=== PATIENT | male | born 1980 | race Two or more races ===

== ENCOUNTER 2022-01-20 16:25 | Inpatient (IN) | payer OTHER ==
[~2022-01-20] VITALS: Ht 162.6 cm; Wt 61.2 kg
[2022-01-20] MEDS ORDERED: IV NS 0.9% 1,000 ML BAG IV ONE (16:30)
[2022-01-20 17:14] LABS: CALCIUM, SERUM 9.3 mg/dL (8.5-10.1); CARBON DIOXIDE 28 mmol/L (21-32); CHLORIDE 99 mmol/L (98-107); CREATININE 0.7 mg/dL (0.6-1.3); GLUCOSE 119 mg/dL (74-106); POTASSIUM 3.3 mmol/L (3.5-5.1); SODIUM SERUM 138 mmol/L (136-145); UREA NITROGEN, BLOOD 7 mg/dL (7-18)
[2022-01-20 17:20] LABS: ALANINE AMINOTRANSFERASE 311 U/L (12-78); ALBUMIN 3.8 g/dL (3.4-5.0); ALKALINE PHOSPHATASE 111 U/L (46-116); ASPARTATE AMINOTRANSFERASE 227 U/L (15-37); BILIRUBIN,DIRECT 0.1 mg/dL (0.0-0.2); BILIRUBIN,TOTAL 0.4 mg/dL (0.2-1.0); TOTAL PROTEIN, SERUM 7.7 g/dL (6.4-8.2)
[2022-01-20 17:55] LABS: BASOPHILS % (AUTO) 0.1 % (0.0-2.0); EOSINOPHILS % (AUTO) 0.1 % (0.0-6.0); LYMPHOCYTES # (AUTO) 1.8 K/uL (0.8-4.8); LYMPHOCYTES % (AUTO) 79.8 % (20.0-44.0); MEAN CORPUSCULAR HGB CONC 35 g/dl (31.0-36.0); MEAN CORPUSCULAR VOLUME 89 fL (80-96); MONOCYTES # (AUTO) 0.2 K/uL (0.1-1.30); MONOCYTES % (AUTO) 7.5 % (2.0-12.0); NEUTROPHILS # (AUTO) 0.3 K/uL (1.8-8.9); NEUTROPHILS % (AUTO) 12.5 % (43.0-81.0); WHITE BLOOD COUNT (AUTO) 2.3 K/uL (4.3-11.0)
[2022-01-20 18:03] LABS: HEMATOCRIT 7 % (39-51); HEMOGLOBIN 2.5 g/dL (13.5-17.5); PLATELET COUNT (AUTO) 6 K/uL (150-450)
[2022-01-20 18:38] LABS: LYMPHOCYTES % (MANUAL) 80 % (16-48); MONOCYTES % (MANUAL) 10 % (0-11.0); NEUTROPHILS % (MANUAL) 10 (42-76)
[2022-01-20] MEDS ORDERED: ONDANSETRON HCL/PF 4 MG/2 ML VIAL IVP PRN (20:00)
[2022-01-20] MEDS ORDERED: Z GUARD REMEDY 4 OZ OINT TP PRN (20:00)
[2022-01-20] MEDS ORDERED: TEMAZEPAM 15 MG CAPSULE PO PRN (20:00)
[2022-01-20] MEDS ORDERED: MORPHINE SULFATE INJ 2 MG/ML DISP.SYRIN IV PRN (20:00)
[2022-01-20] MEDS ORDERED: LORAZEPAM INJ 2 MG/ML VIAL IV PRN (20:00)
[2022-01-20] MEDS ORDERED: HYDROCODONE/APAP 5/325MG TABLET PO PRN (20:00)
[2022-01-20] MEDS ORDERED: CEFEPIME 2 GM in IV D5W 100 ML IV SCH (21:00)
[2022-01-20] MEDS ORDERED: PANTOPRAZOLE 40 MG TABLET.DR PO SCH (23:15)
[2022-01-21] VITALS (18 sets, daily range): BP systolic 114–141; BP diastolic 62–79
[2022-01-21] MEDS: IV NS 0.9% 1,000 ML IV PRN ×2 (03:06→16:53)
[2022-01-21] MEDS ORDERED: CEFEPIME 1 GM VIAL ONE (04:57)
[2022-01-21] MEDS ORDERED: CEFEPIME 2 GM in IV D5W 100 ML IV SCH (05:00)
[2022-01-21 06:29] LABS: BASOPHILS % (AUTO) 0.1 % (0.0-2.0); EOSINOPHILS % (AUTO) 0.2 % (0.0-6.0); LYMPHOCYTES # (AUTO) 1.1 K/uL (0.8-4.8); LYMPHOCYTES % (AUTO) 80.6 % (20.0-44.0); MEAN CORPUSCULAR HGB CONC 35 g/dl (31.0-36.0); MEAN CORPUSCULAR VOLUME 88 fL (80-96); MONOCYTES # (AUTO) 0.1 K/uL (0.1-1.30); MONOCYTES % (AUTO) 7.6 % (2.0-12.0); NEUTROPHILS # (AUTO) 0.2 K/uL (1.8-8.9); NEUTROPHILS % (AUTO) 11.5 % (43.0-81.0)
[2022-01-21 06:44] LABS: RED BLOOD CELL COUNT(AUTO) 1.65 MIL/uL (4.5-6.0)
[2022-01-21 06:48] LABS: HEMATOCRIT 15 % (39-51); HEMOGLOBIN 5.1 g/dL (13.5-17.5); PLATELET COUNT (AUTO) 31 K/uL (150-450); WHITE BLOOD COUNT (AUTO) 1.4 K/uL (4.3-11.0)
[2022-01-21 07:23] LABS: CALCIUM, SERUM 8.5 mg/dL (8.5-10.1); CREATININE 0.5 mg/dL (0.6-1.3); MAGNESIUM 1.8 mg/dL (1.8-2.4); PHOSPHORUS 3.9 mg/dL (2.5-4.9); POTASSIUM 3.4 mmol/L (3.5-5.1)
[2022-01-21] MEDS ORDERED: HYDR-3972 PO (07:26)
[2022-01-21] MEDS ORDERED: PANT40TA49 PO (07:26)
[2022-01-21] MEDS: LACTULOSE 10 G/15 ML UDC (PYXIS) PO SCH ×2 (08:29→17:51)
[2022-01-21] MEDS: THIAMINE HCL 100 MG TABLET PO SCH (08:29)
[2022-01-21] MEDS: PANTOPRAZOLE 40 MG TABLET.DR PO SCH (08:29)
[2022-01-21 10:15] LABS: LYMPHOCYTES % (MANUAL) 76 % (16-48); MONOCYTES % (MANUAL) 8 % (0-11.0); NEUTROPHILS % (MANUAL) 16 (42-76)
[2022-01-21] MEDS ORDERED: POTASSIUM CHLORIDE 20 MEQ TAB.PRT.SR PO SCH (11:00)
[2022-01-21 12:57] LABS: D-DIMER 1.55 mg/L(FEU (0.17-0.50)
[2022-01-21 14:17] LABS: THYROID STIMULATING HORMONE 0.928 uIU/mL (0.358-3.74)
[2022-01-21] MEDS: CEFEPIME 2 GM in IV D5W 100 ML IV SCH ×2 (15:30→22:49)
[2022-01-21] MEDS: ACYCLOVIR 200 MG CAPSULE PO SCH (17:50)
[2022-01-21] MEDS: ALLOPURINOL 100 MG TABLET PO SCH (17:51)
[2022-01-21 18:17] LABS: BASOPHILS % (AUTO) 0.3 % (0.0-2.0); EOSINOPHILS % (AUTO) 0.2 % (0.0-6.0); HEMATOCRIT 25 % (39-51); HEMOGLOBIN 8.5 g/dL (13.5-17.5); LYMPHOCYTES # (AUTO) 0.9 K/uL (0.8-4.8); LYMPHOCYTES % (AUTO) 74.8 % (20.0-44.0); MEAN CORPUSCULAR HGB CONC 35 g/dl (31.0-36.0); MEAN CORPUSCULAR VOLUME 86 fL (80-96); MONOCYTES # (AUTO) 0.1 K/uL (0.1-1.30); MONOCYTES % (AUTO) 8.4 % (2.0-12.0); NEUTROPHILS # (AUTO) 0.2 K/uL (1.8-8.9); NEUTROPHILS % (AUTO) 16.3 % (43.0-81.0); RED BLOOD CELL COUNT(AUTO) 2.88 MIL/uL (4.5-6.0)
[2022-01-21 20:21] LABS: PLATELET COUNT (AUTO) 27 K/uL (150-450); WHITE BLOOD COUNT (AUTO) 1.2 K/uL (4.3-11.0)
[2022-01-21] MEDS: TBO-FILGRASTIM 300 MCG/0.5 ML SYRINGE SQ SCH (20:43)
[2022-01-21 21:21] LABS: LYMPHOCYTES % (MANUAL) 53 % (16-48); MONOCYTES % (MANUAL) 1 % (0-11.0); NEUTROPHILS % (MANUAL) 44 (42-76); REACTIVE LYMPHOCYTES 2 % (0-0)
[2022-01-22] VITALS (7 sets, daily range): BP systolic 108–129; BP diastolic 58–76
[2022-01-22] MEDS: CEFEPIME 2 GM in IV D5W 100 ML IV SCH ×3 (05:31→20:08)
[2022-01-22 06:47] LABS: BASOPHILS % (AUTO) 0.1 % (0.0-2.0); EOSINOPHILS % (AUTO) 0.1 % (0.0-6.0); HEMATOCRIT 23 % (39-51); HEMOGLOBIN 8.2 g/dL (13.5-17.5); LYMPHOCYTES % (AUTO) 75.4 % (20.0-44.0); MEAN CORPUSCULAR HGB CONC 35 g/dl (31.0-36.0); MEAN CORPUSCULAR VOLUME 85 fL (80-96); MONOCYTES # (AUTO) 0.1 K/uL (0.1-1.30); MONOCYTES % (AUTO) 8.7 % (2.0-12.0); NEUTROPHILS # (AUTO) 0.2 K/uL (1.8-8.9); NEUTROPHILS % (AUTO) 15.7 % (43.0-81.0); RED BLOOD CELL COUNT(AUTO) 2.73 MIL/uL (4.5-6.0)
[2022-01-22 06:54] LABS: PLATELET COUNT (AUTO) 21 K/uL (150-450); WHITE BLOOD COUNT (AUTO) 1.3 K/uL (4.3-11.0)
[2022-01-22 07:25] LABS: ALBUMIN 3.2 g/dL (3.4-5.0); BILIRUBIN,DIRECT 0.3 mg/dL (0.0-0.2); BILIRUBIN,TOTAL 1.2 mg/dL (0.2-1.0); CALCIUM, SERUM 9.1 mg/dL (8.5-10.1); CREATININE 0.6 mg/dL (0.6-1.3); POTASSIUM 3.6 mmol/L (3.5-5.1); TOTAL PROTEIN, SERUM 6.8 g/dL (6.4-8.2)
[2022-01-22 08:06] LABS: IMMUNOGLOBULIN A, SERUM 478 mg/dL (90-386); IMMUNOGLOBULIN G, SERUM 892 mg/dL (603-1613); IMMUNOGLOBULIN M, SERUM 131 mg/dL (20-172)
[2022-01-22] MEDS: PANTOPRAZOLE 40 MG TABLET.DR PO SCH (08:26)
[2022-01-22 08:36] LABS: BAND % (MANUAL) 2 % (0.0-5.0); LYMPHOCYTES % (MANUAL) 73 % (16-48); MONOCYTES % (MANUAL) 7 % (0-11.0); NEUTROPHILS % (MANUAL) 18 (42-76)
[2022-01-22] MEDS: LACTULOSE 10 G/15 ML UDC (PYXIS) PO SCH ×2 (08:37→16:49)
[2022-01-22] MEDS: IV NS 0.9% 1,000 ML IV PRN ×2 (08:37→23:52)
[2022-01-22] MEDS: ACYCLOVIR 200 MG CAPSULE PO SCH ×2 (08:38→16:49)
[2022-01-22] MEDS: THIAMINE HCL 100 MG TABLET PO SCH (08:38)
[2022-01-22] MEDS: ALLOPURINOL 100 MG TABLET PO SCH ×3 (08:38→16:49)
[2022-01-22 11:06] LABS: *ANA ANTI-CENTROMERE B AB <0.2 AI (0.0-0.9); *ANA ANTI-DNA(DS) AB, QN <1 IU/mL (0-9); *ANA ANTI-JO-1 <0.2 AI (0.0-0.9); *ANA ANTICHROMATIN ANTIBODY <0.2 AI (0.0-0.9); *ANA RNP ANTIBODIES <0.2 AI (0.0-0.9); *ANA SJOGREN'S ANTI-SS-A <0.2 AI (0.0-0.9); *ANA SJOGREN'S ANTI-SS-B <0.2 AI (0.0-0.9); *ANAANTI-SCLERODERMA-70 AB <0.2 AI (0.0-0.9); *ANASMITH AB <0.2 AI (0.0-0.9)
[2022-01-22] MEDS ORDERED: LIDOCAINE 1% INJ 50 ML MDV IJ ONE (14:00)
[2022-01-22] MEDS ORDERED: ACETAMINOPHEN 325 MG TABLET PO ONE ×2 (14:00→18:00)
[2022-01-22] MEDS ORDERED: diphenhydrAMINE HCL 50 MG/ML VIAL IV ONE ×2 (14:00→17:37)
[2022-01-22] MEDS ORDERED: MORPHINE SULFATE INJ 2 MG/ML DISP.SYRIN IV ONE (19:00)
[2022-01-22] MEDS ORDERED: MORPHINE SULFATE INJ 4 MG/ML DISP.SYRIN IV PRN (19:30)
[2022-01-22 19:53] LABS: BASOPHILS % (AUTO) 0.1 % (0.0-2.0); EOSINOPHILS % (AUTO) 0.1 % (0.0-6.0); HEMATOCRIT 25 % (39-51); HEMOGLOBIN 8.6 g/dL (13.5-17.5); LYMPHOCYTES % (AUTO) 70.7 % (20.0-44.0); MEAN CORPUSCULAR HGB CONC 35 g/dl (31.0-36.0); MEAN CORPUSCULAR VOLUME 86 fL (80-96); MONOCYTES # (AUTO) 0.1 K/uL (0.1-1.30); MONOCYTES % (AUTO) 8.3 % (2.0-12.0); NEUTROPHILS # (AUTO) 0.3 K/uL (1.8-8.9); NEUTROPHILS % (AUTO) 20.8 % (43.0-81.0); RED BLOOD CELL COUNT(AUTO) 2.85 MIL/uL (4.5-6.0)
[2022-01-22] MEDS: TBO-FILGRASTIM 300 MCG/0.5 ML SYRINGE SQ SCH (20:05)
[2022-01-22 20:15] LABS: PLATELET COUNT (AUTO) 20 K/uL (150-450); WHITE BLOOD COUNT (AUTO) 1.4 K/uL (4.3-11.0)
[2022-01-22 21:05] LABS: LYMPHOCYTES % (MANUAL) 64 % (16-48); MONOCYTES % (MANUAL) 10 % (0-11.0); NEUTROPHILS % (MANUAL) 26 (42-76)
[2022-01-23] VITALS: BP 129/69
[2022-01-23 04:00] VITALS: BP 116/75
[2022-01-23] MEDS: CEFEPIME 2 GM in IV D5W 100 ML IV SCH ×3 (05:06→20:24)
[2022-01-23 06:46] LABS: CALCIUM, SERUM 8.8 mg/dL (8.5-10.1); CREATININE 0.6 mg/dL (0.6-1.3); POTASSIUM 3.4 mmol/L (3.5-5.1)
[2022-01-23 06:54] LABS: BASOPHILS % (AUTO) 0.1 % (0.0-2.0); EOSINOPHILS % (AUTO) 0.3 % (0.0-6.0); HEMATOCRIT 22 % (39-51); HEMOGLOBIN 7.9 g/dL (13.5-17.5); MEAN CORPUSCULAR HGB CONC 35 g/dl (31.0-36.0); MEAN CORPUSCULAR VOLUME 86 fL (80-96); MONOCYTES # (AUTO) 0.2 K/uL (0.1-1.30); MONOCYTES % (AUTO) 10.1 % (2.0-12.0); NEUTROPHILS # (AUTO) 0.4 K/uL (1.8-8.9); NEUTROPHILS % (AUTO) 27.5 % (43.0-81.0); RED BLOOD CELL COUNT(AUTO) 2.62 MIL/uL (4.5-6.0)
[2022-01-23 06:57] LABS: PLATELET COUNT (AUTO) 24 K/uL (150-450); WHITE BLOOD COUNT (AUTO) 1.6 K/uL (4.3-11.0)
[2022-01-23 08:00] VITALS: BP 131/80
[2022-01-23] MEDS: THIAMINE HCL 100 MG TABLET PO SCH (09:05)
[2022-01-23] MEDS: ALLOPURINOL 100 MG TABLET PO SCH ×3 (09:05→16:30)
[2022-01-23] MEDS: LACTULOSE 10 G/15 ML UDC (PYXIS) PO SCH ×2 (09:05→16:30)
[2022-01-23] MEDS: PANTOPRAZOLE 40 MG TABLET.DR PO SCH (09:05)
[2022-01-23] MEDS: ACYCLOVIR 200 MG CAPSULE PO SCH ×2 (09:05→16:29)
[2022-01-23 09:07] LABS: BAND % (MANUAL) 9 % (0.0-5.0); EOSINOPHILS % (MANUAL) 2 % (0-4); LYMPHOCYTES % (MANUAL) 65 % (16-48); MONOCYTES % (MANUAL) 12 % (0-11.0); NEUTROPHILS % (MANUAL) 12 (42-76)
[2022-01-23] MEDS ORDERED: POTASSIUM CHLORIDE 20 MEQ TAB.PRT.SR PO SCH ×2 (09:30→11:00)
[2022-01-23 11:07] LABS: *SPE A/G RATIO 1.1 (0.7-1.7); *SPE ALPHA-1-GLOBULIN 0.4 g/dL (0.0-0.4); *SPE ALPHA-2-GLOBULIN 0.6 g/dL (0.4-1.0); *SPE BETA GLOBULIN 1.4 g/dL (0.7-1.3); *SPE M-SPIKE Not Observed g/dL (Not Observed)
[2022-01-23 12:00] VITALS: BP 107/64
[2022-01-23 16:00] VITALS: BP 109/63
[2022-01-23 20:00] VITALS: BP 105/59
[2022-01-23] MEDS: TBO-FILGRASTIM 300 MCG/0.5 ML SYRINGE SQ SCH (20:14)
[2022-01-24] VITALS (12 sets, daily range): BP systolic 95–136; BP diastolic 61–82
[2022-01-24] MEDS: IV NS 0.9% 1,000 ML IV PRN ×2 (00:53→13:18)
[2022-01-24] MEDS: CEFEPIME 2 GM in IV D5W 100 ML IV SCH ×3 (04:28→20:33)
[2022-01-24 06:17] LABS: BASOPHILS % (AUTO) 0.2 % (0.0-2.0); EOSINOPHILS % (AUTO) 0.1 % (0.0-6.0); HEMATOCRIT 23 % (39-51); HEMOGLOBIN 7.9 g/dL (13.5-17.5); LYMPHOCYTES # (AUTO) 0.8 K/uL (0.8-4.8); LYMPHOCYTES % (AUTO) 53.5 % (20.0-44.0); MEAN CORPUSCULAR HGB CONC 35 g/dl (31.0-36.0); MEAN CORPUSCULAR VOLUME 87 fL (80-96); MONOCYTES # (AUTO) 0.2 K/uL (0.1-1.30); MONOCYTES % (AUTO) 12.7 % (2.0-12.0); NEUTROPHILS # (AUTO) 0.5 K/uL (1.8-8.9); NEUTROPHILS % (AUTO) 33.5 % (43.0-81.0); RED BLOOD CELL COUNT(AUTO) 2.63 MIL/uL (4.5-6.0)
[2022-01-24 07:13] LABS: CALCIUM, SERUM 8.9 mg/dL (8.5-10.1); CREATININE 0.6 mg/dL (0.6-1.3); MAGNESIUM 1.8 mg/dL (1.8-2.4); PHOSPHORUS 4.4 mg/dL (2.5-4.9); POTASSIUM 3.5 mmol/L (3.5-5.1)
[2022-01-24] MEDS: PANTOPRAZOLE 40 MG TABLET.DR PO SCH (08:36)
[2022-01-24] MEDS: LACTULOSE 10 G/15 ML UDC (PYXIS) PO SCH ×2 (08:38→17:04)
[2022-01-24] MEDS: THIAMINE HCL 100 MG TABLET PO SCH (08:38)
[2022-01-24] MEDS: ALLOPURINOL 100 MG TABLET PO SCH ×3 (08:38→17:04)
[2022-01-24] MEDS: ACYCLOVIR 200 MG CAPSULE PO SCH ×2 (08:38→17:04)
[2022-01-24 08:39] LABS: PLATELET COUNT (AUTO) 13 K/uL (150-450); WHITE BLOOD COUNT (AUTO) 1.5 K/uL (4.3-11.0)
[2022-01-24] MEDS ORDERED: ACETAMINOPHEN 325 MG TABLET PO ONE (15:00)
[2022-01-24 15:41] LABS: D-DIMER 3.19 mg/L(FEU (0.17-0.50)
[2022-01-24 16:39] LABS: LYMPHOCYTES % (MANUAL) 55 % (16-48); MONOCYTES % (MANUAL) 10 % (0-11.0)
[2022-01-24 16:40] LABS: NEUTROPHILS % (MANUAL) 35 (42-76)
[2022-01-24] MEDS: TBO-FILGRASTIM 300 MCG/0.5 ML SYRINGE SQ SCH (20:33)
[2022-01-24] MEDS ORDERED: ACETAMINOPHEN 325 MG TABLET ONE (21:45)
[2022-01-25] VITALS: BP 118/71
[2022-01-25 04:00] VITALS: BP 107/67
[2022-01-25] MEDS: CEFEPIME 2 GM in IV D5W 100 ML IV SCH ×3 (04:26→21:00)
[2022-01-25 07:03] LABS: BASOPHILS % (AUTO) 0.1 % (0.0-2.0); EOSINOPHILS % (AUTO) 0.2 % (0.0-6.0); HEMATOCRIT 23 % (39-51); HEMOGLOBIN 7.9 g/dL (13.5-17.5); LYMPHOCYTES # (AUTO) 0.8 K/uL (0.8-4.8); LYMPHOCYTES % (AUTO) 51.2 % (20.0-44.0); MEAN CORPUSCULAR HGB CONC 34 g/dl (31.0-36.0); MEAN CORPUSCULAR VOLUME 87 fL (80-96); MONOCYTES # (AUTO) 0.2 K/uL (0.1-1.30); MONOCYTES % (AUTO) 12.3 % (2.0-12.0); NEUTROPHILS # (AUTO) 0.5 K/uL (1.8-8.9); NEUTROPHILS % (AUTO) 36.2 % (43.0-81.0); RED BLOOD CELL COUNT(AUTO) 2.64 MIL/uL (4.5-6.0)
[2022-01-25 07:07] LABS: CALCIUM, SERUM 8.3 mg/dL (8.5-10.1); CREATININE 0.5 mg/dL (0.6-1.3); MAGNESIUM 1.7 mg/dL (1.8-2.4); PHOSPHORUS 3.9 mg/dL (2.5-4.9); POTASSIUM 3.5 mmol/L (3.5-5.1)
[2022-01-25 08:00] VITALS: BP 113/60
[2022-01-25] MEDS: LACTULOSE 10 G/15 ML UDC (PYXIS) PO SCH ×2 (09:25→17:12)
[2022-01-25] MEDS: ACYCLOVIR 200 MG CAPSULE PO SCH ×2 (09:25→17:12)
[2022-01-25] MEDS: PANTOPRAZOLE 40 MG TABLET.DR PO SCH (09:25)
[2022-01-25] MEDS: ALLOPURINOL 100 MG TABLET PO SCH ×3 (09:26→17:12)
[2022-01-25] MEDS: THIAMINE HCL 100 MG TABLET PO SCH (09:26)
[2022-01-25] MEDS ORDERED: MAGNESIUM OXIDE 400 MG TABLET PO ONE (10:00)
[2022-01-25 10:49] LABS: WHITE BLOOD COUNT (AUTO) 1.5 K/uL (4.3-11.0)
[2022-01-25 10:51] LABS: PLATELET COUNT (AUTO) 23 K/uL (150-450)
[2022-01-25 12:00] VITALS: BP 103/62
[2022-01-25] MEDS: IV NS 0.9% 1,000 ML IV PRN (14:00)
[2022-01-25 16:00] VITALS: BP 122/52
[2022-01-25 20:00] VITALS: BP 110/66
[2022-01-25] MEDS: TBO-FILGRASTIM 300 MCG/0.5 ML SYRINGE SQ SCH (21:00)
[2022-01-25] MEDS: METRONIDAZOLE 500 MG TABLET PO SCH (22:13)
[2022-01-25] MEDS ORDERED: DOXYCYCLINE 100 MG VIAL ONE (22:53)
[2022-01-25] MEDS: DOXYCYCLINE 100 MG in IV D5W 100 ML IV SCH (23:00)
[2022-01-26] VITALS (8 sets, daily range): BP systolic 105–131; BP diastolic 49–77
[2022-01-26 02:43] LABS: BILIRUBIN,URINE NEGATIVE (NEGATIVE); COLOR,URINE YELLOW (YELLOW); LEUKOCYTE ESTERASE ,URINE NEGATIVE (NEGATIVE); NITRITE, URINE NEGATIVE (NEGATIVE); PH,URINE 6.5 (5.0-8.0); PROTEIN,URINE NEGATIVE (NEGATIVE); UGLUCOSE NEGATIVE (NEGATIVE); UROBILINOGEN,URINE 0.2 EU/dL (0.2)
[2022-01-26] MEDS: METRONIDAZOLE 500 MG TABLET PO SCH ×3 (05:28→21:15)
[2022-01-26] MEDS: CEFEPIME 2 GM in IV D5W 100 ML IV SCH ×3 (05:28→21:16)
[2022-01-26 06:27] LABS: BASOPHILS % (AUTO) 0.1 % (0.0-2.0); EOSINOPHILS % (AUTO) 0.3 % (0.0-6.0); HEMATOCRIT 23 % (39-51); HEMOGLOBIN 7.9 g/dL (13.5-17.5); LYMPHOCYTES # (AUTO) 1.2 K/uL (0.8-4.8); LYMPHOCYTES % (AUTO) 54.1 % (20.0-44.0); MEAN CORPUSCULAR HGB CONC 35 g/dl (31.0-36.0); MEAN CORPUSCULAR VOLUME 87 fL (80-96); MONOCYTES # (AUTO) 0.3 K/uL (0.1-1.30); MONOCYTES % (AUTO) 14.4 % (2.0-12.0); NEUTROPHILS # (AUTO) 0.7 K/uL (1.8-8.9); NEUTROPHILS % (AUTO) 31.1 % (43.0-81.0); WHITE BLOOD COUNT (AUTO) 2.3 K/uL (4.3-11.0)
[2022-01-26 06:48] LABS: CREATININE 0.5 mg/dL (0.6-1.3); MAGNESIUM 1.8 mg/dL (1.8-2.4); PHOSPHORUS 4.1 mg/dL (2.5-4.9); POTASSIUM 3.6 mmol/L (3.5-5.1)
[2022-01-26] MEDS: IV NS 0.9% 1,000 ML IV PRN (07:19)
[2022-01-26 07:46] LABS: PLATELET COUNT (AUTO) 14 K/uL (150-450)
[2022-01-26] MEDS: PANTOPRAZOLE 40 MG TABLET.DR PO SCH (08:18)
[2022-01-26] MEDS: DOXYCYCLINE 100 MG in IV D5W 100 ML IV SCH ×2 (08:18→23:27)
[2022-01-26] MEDS: THIAMINE HCL 100 MG TABLET PO SCH (08:19)
[2022-01-26] MEDS: ALLOPURINOL 100 MG TABLET PO SCH ×2 (08:19→12:34)
[2022-01-26] MEDS: ACYCLOVIR 200 MG CAPSULE PO SCH (08:19)
[2022-01-26] MEDS: LACTULOSE 10 G/15 ML UDC (PYXIS) PO SCH ×2 (08:19→16:53)
[2022-01-26] MEDS ORDERED: diphenhydrAMINE HCL 50 MG/ML VIAL IV ONE ×3 (16:00→20:00)
[2022-01-26] MEDS ORDERED: ACETAMINOPHEN 325 MG TABLET PO ONE ×3 (16:00→20:00)
[2022-01-26 20:13] LABS: LYMPHOCYTES % (MANUAL) 53 % (16-48); MONOCYTES % (MANUAL) 6 % (0-11.0); NEUTROPHILS % (MANUAL) 41 (42-76)
[2022-01-26] MEDS: TBO-FILGRASTIM 300 MCG/0.5 ML SYRINGE SQ SCH (21:15)
[2022-01-27] VITALS: BP 99/64
[2022-01-27] MEDS: IV NS 0.9% 1,000 ML IV PRN (02:20)
[2022-01-27 04:00] VITALS: BP 95/51
[2022-01-27] MEDS: METRONIDAZOLE 500 MG TABLET PO SCH ×2 (04:29→12:02)
[2022-01-27] MEDS: CEFEPIME 2 GM in IV D5W 100 ML IV SCH ×2 (04:29→12:02)
[2022-01-27 06:49] LABS: BASOPHILS % (AUTO) 0.2 % (0.0-2.0); EOSINOPHILS % (AUTO) 0.2 % (0.0-6.0); HEMATOCRIT 21 % (39-51); HEMOGLOBIN 7.4 g/dL (13.5-17.5); LYMPHOCYTES # (AUTO) 1.1 K/uL (0.8-4.8); LYMPHOCYTES % (AUTO) 46.5 % (20.0-44.0); MEAN CORPUSCULAR HGB CONC 35 g/dl (31.0-36.0); MEAN CORPUSCULAR VOLUME 86 fL (80-96); MONOCYTES # (AUTO) 0.3 K/uL (0.1-1.30); MONOCYTES % (AUTO) 12.8 % (2.0-12.0); NEUTROPHILS % (AUTO) 40.3 % (43.0-81.0); RED BLOOD CELL COUNT(AUTO) 2.49 MIL/uL (4.5-6.0); WHITE BLOOD COUNT (AUTO) 2.4 K/uL (4.3-11.0)
[2022-01-27 06:54] LABS: CALCIUM, SERUM 8.8 mg/dL (8.5-10.1); CREATININE 0.6 mg/dL (0.6-1.3); MAGNESIUM 1.8 mg/dL (1.8-2.4); PHOSPHORUS 4.3 mg/dL (2.5-4.9); POTASSIUM 3.9 mmol/L (3.5-5.1)
[2022-01-27 06:58] LABS: PLATELET COUNT (AUTO) 41 K/uL (150-450)
[2022-01-27] MEDS: PANTOPRAZOLE 40 MG TABLET.DR PO SCH (07:39)
[2022-01-27 08:00] VITALS: BP 92/57
[2022-01-27] MEDS: LACTULOSE 10 G/15 ML UDC (PYXIS) PO SCH (08:44)
[2022-01-27] MEDS: THIAMINE HCL 100 MG TABLET PO SCH (08:44)
[2022-01-27] MEDS: DOXYCYCLINE 100 MG in IV D5W 100 ML IV SCH (08:44)
[2022-01-27 08:49] LABS: LYMPHOCYTES % (MANUAL) 50 % (16-48); MONOCYTES % (MANUAL) 8 % (0-11.0); NEUTROPHILS % (MANUAL) 42 (42-76)
[2022-01-27 12:00] VITALS: BP 97/57
[2022-01-27] MEDS ORDERED: LACT10SO58 PO (13:27)
[2022-01-27] MEDS ORDERED: Thiamine HCL PO (13:27)
[2022-01-27] MEDS ORDERED: THIA100T88 PO (13:28)
== END 2022-01-27 13:55 | disposition home or self-care (01) | DRG 280 ==
LOC: ER 16:30 → TELE1 23:11
PROVIDERS: ADMIT Nurse Practitioner Acute Care; ATTEND Student in an Organized Health Care Education/Training Program
PROC: 30233N1 Transfusion of Nonautologous Red Blood Cells into Peripheral Vein, Percutaneous Approach (ICD-10-PCS; principal; 2022-01-20)
PROC: 6A551Z2 Pheresis of Platelets, Multiple (ICD-10-PCS; 2022-01-20)
PROC: 079T3ZX Drainage of Bone Marrow, Percutaneous Approach, Diagnostic (ICD-10-PCS; 2022-01-22)
DX: K70.9 Alcoholic liver disease, unspecified (principal); D61.818 Other pancytopenia; E72.20 Disorder of urea cycle metabolism, unspecified; D69.6 Thrombocytopenia, unspecified; E87.6 Hypokalemia; R74.01 Elevation of levels of liver transaminase levels; Z59.00 Homelessness unspecified; Z20.822 Contact with and (suspected) exposure to COVID-19; F10.10 Alcohol abuse, uncomplicated; Y90.8 Blood alcohol level of 240 mg/100 ml or more; D64.9 Anemia, unspecified; F15.10 Other stimulant abuse, uncomplicated; Z87.891 Personal history of nicotine dependence; N28.1 Cyst of kidney, acquired; F41.9 Anxiety disorder, unspecified; D70.9 Neutropenia, unspecified; R50.81 Fever presenting with conditions classified elsewhere; R19.7 Diarrhea, unspecified
CPT/HCPCS: 36415; 70450-TC; 71045-TC; 76700-TC; 76856-TC; 80048-TC; 80076-TC; 82140-TC; 82607-TC; 82728-TC; 82784; 83540-TC; 83735-TC; 84100-TC; 84155; 84165; 84443-TC; 84484-TC; 85025-TC; 85396; 85610-TC; 85730-TC; 86225; 86235; 86334; 86431-TC; 86706; 86803; 86850-TC; 87040-TC; 87081-TC; 87086-TC; 87340; 87806; A6403; C9803; G0378; G0480; J0692; J1200; J1442; J2270; J3490; J7030; J7040; J7050; J7060; P9016; P9034; P9035

== ENCOUNTER 2022-03-19 15:14 | Inpatient (IN) | payer OTHER ==
[~2022-03-19] VITALS: Ht 162.6 cm; Wt 56.7 kg
[~2022-03-19 15:14] MED LIST: HYDR-3972 PO; LACT10SO58 PO; THIA100T88 PO
--- NOTE | 2022-03-19 15:24 | NUR ---
TO ER BED 11. BIB RA 889 IN A SITTING POSITION,C/O WEAKNESS X 1 WEEK,ADMIT TO DRINKING ALCOHOL AND USING CRYSTAL METH. VITALS ARE WITHIN NORMAL LIMITS, NO RESP DISTRESS NOTED. AWAITING MD TUCKER.
[2022-03-19] MEDS ORDERED: IV NS 0.9% 1,000 ML BAG IV ONE ×2 (15:30→17:00)
--- NOTE | 2022-03-19 15:41 | NUR ---
IV ESTABLIHSED R AC 20G. LABS DRAWN AND COLLECTED AT BEDSIDE.
[2022-03-19 16:22] LABS: CALCIUM, SERUM 9.2 mg/dL (8.5-10.1); CARBON DIOXIDE 19 mmol/L (21-32); CHLORIDE 100 mmol/L (98-107); CREATININE 0.8 mg/dL (0.6-1.3); GLUCOSE 99 mg/dL (74-106); POTASSIUM 3.5 mmol/L (3.5-5.1); SODIUM SERUM 139 mmol/L (136-145); UREA NITROGEN, BLOOD 11 mg/dL (7-18)
[2022-03-19 16:36] LABS: ALANINE AMINOTRANSFERASE 145 U/L (12-78); ALBUMIN 3.8 g/dL (3.4-5.0); ALCOHOL, BLOOD 97 mg/dL (0-0); ALKALINE PHOSPHATASE 122 U/L (46-116); ASPARTATE AMINOTRANSFERASE 148 U/L (15-37); BILIRUBIN,DIRECT 0.1 mg/dL (0.0-0.2); BILIRUBIN,TOTAL 0.4 mg/dL (0.2-1.0); TOTAL PROTEIN, SERUM 7.3 g/dL (6.4-8.2)
[2022-03-19 16:41] LABS: ACETAMINOPHEN < 2 ug/ml (10-30)
--- NOTE | 2022-03-19 16:45 | NUR ---
COVID TEST COLLECTED AND SENT
--- NOTE | 2022-03-19 16:46 | NUR ---
URINE COLLECTED AND SENT
[2022-03-19] MEDS ORDERED: PANTOPRAZOLE 40 MG VIAL ONE (16:49)
[2022-03-19] MEDS ORDERED: OCTREOTIDE 100 MCG/ML VIAL ONE (16:49)
[2022-03-19] MEDS ORDERED: FOLI0.8C PO (16:53)
[2022-03-19] MEDS ORDERED: THIA100T88 PO (16:53)
[2022-03-19] MEDS ORDERED: VITA1TAB56 PO (16:53)
[2022-03-19] MEDS ORDERED: PANTOPRAZOLE 40 MG VIAL IV ONE (17:00)
[2022-03-19] MEDS ORDERED: CEFEPIME 1 GM in IV D5W 50 ML IV ONE (17:00)
[2022-03-19] MEDS ORDERED: OCTREOTIDE 50 MCG/ML AMPUL IV ONE (17:00)
[2022-03-19] MEDS ORDERED: VANCOMYCIN 1 GM in IV D5W 250 ML IV ONE (17:00)
--- NOTE | 2022-03-19 17:25 | NUR ---
SPOKE TO PALOMA FOSTER FROM [facility] AND GAVE VERBAL AUTHORIZATION
[2022-03-19 17:27] LABS: BILIRUBIN,URINE NEGATIVE (NEGATIVE); COLOR,URINE YELLOW (YELLOW); LEUKOCYTE ESTERASE ,URINE NEGATIVE (NEGATIVE); NITRITE, URINE NEGATIVE (NEGATIVE); PROTEIN,URINE NEGATIVE (NEGATIVE); UGLUCOSE NEGATIVE (NEGATIVE); UROBILINOGEN,URINE 0.2 EU/dL (0.2)
[2022-03-19 19:20] LABS: BACTERIA,URINE None seen /HPF (None Seen); RBC,URINE 0-2 /HPF (0-2); SQUAMOUS EPITHELIAL CELL,UR 0-2 /HPF (None Seen); WBC,URINE 0-2 /HPF (0-3)
--- NOTE | 2022-03-19 21:00 | NUR ---
SECOND UNIT OF BLOOD TRANSFUSION COMENCED AT 83MLS/HR.
--- NOTE | 2022-03-19 22:43 | NUR ---
BLEACH BOILER PACKER AT PT'S BEDSIDE
[2022-03-19] MEDS ORDERED: MAG HYDROX/AL HYDROX/SIMETH 30 ML UDC PO PRN (23:00)
[2022-03-19] MEDS ORDERED: Z GUARD REMEDY 4 OZ OINT TP PRN (23:00)
[2022-03-19] MEDS ORDERED: TEMAZEPAM 15 MG CAPSULE PO PRN (23:00)
[2022-03-19] MEDS ORDERED: LORAZEPAM INJ 2 MG/ML VIAL IV PRN (23:00)
[2022-03-19] MEDS ORDERED: ONDANSETRON HCL/PF 4 MG/2 ML VIAL IVP PRN (23:00)
[2022-03-19] MEDS ORDERED: MORPHINE SULFATE INJ 2 MG/ML DISP.SYRIN IV PRN (23:00)
[2022-03-19 23:56] LABS: HEMOGLOBIN 3.6 g/dL (13.5-17.5)
[2022-03-20] VITALS (15 sets, daily range): BP systolic 105–122; BP diastolic 59–96
[2022-03-20] MEDS ORDERED: MORPHINE SULFATE INJ 2 MG/ML DISP.SYRIN ONE (00:44)
--- NOTE | 2022-03-20 01:00 | NUR ---
THRID UNIT OF BLOOD TRANSFUSION RUNNING
--- NOTE | 2022-03-20 02:46 | NUR ---
called twice to give report rn will call back.
--- NOTE | 2022-03-20 02:53 | NUR ---
REPORT GIVEN TO NINOSKA KELLEY
--- NOTE | 2022-03-20 02:54 | NUR ---
TRANSFERRING PT TO 113 VIA ACLS
--- NOTE | 2022-03-20 03:10 | NUR ---
MIGRATORY WORKER NOTE RECEIVED 41 Y/O M PATIENT FROM ER VIA [facility], ON RA TOLERATING WELL, PT ABLE TO MAKE NEEDS KNOWN, WITH IV ACCESS ON LAC RUNNING 3RD BAG OF PRBC AT 150 ML/HR AND IV ACCESS ON R WRIST INTACT, PATENT AND FLUSHES WELL. INITIAL ASSESSMENT DONE, PATIENT DECLINED BODY CHECK ON LOWER EXTREMITIES. SKIN INTACT ON THE UPPER BODY PART. NO S/SX OF RESPIRATORY DISTRESS. ORIENTED PT TO THE UNIT, V/S TAKEN AND RECORDED AT 98.5, 75, 97%, RR 18, 122/81. CALL LIGHT WITHIN REACH, BED IN LOWEST AND LOCKED POSITION. WILL CONT TO MONITOR.
[2022-03-20] MEDS: IV NS 0.9% 1,000 ML IV PRN (03:44)
[2022-03-20 04:31] LABS: BASOPHILS % (AUTO) 0.2 % (0.0-2.0); EOSINOPHILS % (AUTO) 0.1 % (0.0-6.0); LYMPHOCYTES # (AUTO) 1.6 K/uL (0.8-4.8); LYMPHOCYTES % (AUTO) 70.8 % (20.0-44.0); MEAN CORPUSCULAR HGB CONC 35 g/dl (31.0-36.0); MEAN CORPUSCULAR VOLUME 91 fL (80-96); MONOCYTES # (AUTO) 0.1 K/uL (0.1-1.30); MONOCYTES % (AUTO) 5.9 % (2.0-12.0); NEUTROPHILS # (AUTO) 0.5 K/uL (1.8-8.9); WHITE BLOOD COUNT (AUTO) 2.2 K/uL (4.3-11.0)
[2022-03-20 04:55] LABS: RED BLOOD CELL COUNT(AUTO) 1.83 MIL/uL (4.5-6.0)
[2022-03-20 04:58] LABS: CALCIUM, SERUM 8.5 mg/dL (8.5-10.1); CREATININE 0.7 mg/dL (0.6-1.3); HEMATOCRIT 17 % (39-51); HEMOGLOBIN 5.9 g/dL (13.5-17.5); MAGNESIUM 2.4 mg/dL (1.8-2.4); PHOSPHORUS 3.7 mg/dL (2.5-4.9); PLATELET COUNT (AUTO) 7 K/uL (150-450); POTASSIUM 4.1 mmol/L (3.5-5.1)
[2022-03-20 05:06] LABS: BAND % (MANUAL) 3 % (0.0-5.0); LYMPHOCYTES % (MANUAL) 70 % (16-48); MONOCYTES % (MANUAL) 6 % (0-11.0)
[2022-03-20 05:07] LABS: NEUTROPHILS % (MANUAL) 21 (42-76)
--- NOTE | 2022-03-20 05:12 | NUR ---
RN NOTE RELAYED PT CRITICAL LAB VALUE TO HYDRO STATION OPERATOR DOC LAYO. HGB 5.9, HCT 17, AND PLATELET 7. V/S TAKEN AT 118/74, 75, RR 18, 98%, T 98.4 AWAITING FOR RESPONSE,
--- NOTE | 2022-03-20 05:13 | NUR ---
RN NOTE DOC LAYO ORDERED TO TRANSFUSE 1 UNIT PRBC AND 1 UNIT PLATELET CONCENTRATE, CALLED LABORATORY, AWAITING FOR BLOOD AVAILABILITY, WILL CONT TO MONITOR PATIENT.
[2022-03-20] MEDS ORDERED: PANTOPRAZOLE 40 MG TABLET.DR PO SCH (07:30)
--- NOTE | 2022-03-20 07:32 | NUR ---
SHEET PILE HAMMER OPERATOR CLOSING NOTE PT ON BED SLEEPING BUT EASILY AROUSABLE TO TOUCH AND VOICE, ON RA TOLERATING WELL, PT ABLE TO MAKE NEEDS KNOWN, WITH IV ACCESS ON LAC RUNNING NS AT 75 ML/HR AND IV ACCESS ON R WRIST INTACT, PATENT AND FLUSHES WELL. NO S/SX OF RESPIRATORY DISTRESS. ALL DUE MEDS GIVEN, CALL LIGHT WITHIN REACH, BED IN LOWEST AND LOCKED POSITION. WILL ENDORSE TO AM SHIFT NURSE.
[2022-03-20] MEDS ORDERED: CEFEPIME 1 GM in IV D5W 50 ML IV SCH (09:00)
[2022-03-20] MEDS: CEFEPIME 2 GM in IV D5W 100 ML IV SCH ×2 (09:17→21:44)
[2022-03-20] MEDS: THIAMINE HCL 100 MG TABLET PO SCH (09:18)
[2022-03-20] MEDS: PANTOPRAZOLE 40 MG VIAL IV SCH ×2 (09:18→21:44)
[2022-03-20 11:07] LABS: HEMOGLOBIN 5.4 g/dL (13.5-17.5)
--- NOTE | 2022-03-20 12:18 | NUR ---
SS consult requested for homelessness. SW will follow up at a later time.
[2022-03-20] MEDS: ACETAMINOPHEN 325 MG TABLET PO PRN (13:20)
--- NOTE | 2022-03-20 13:26 | NUR ---
RN NOTE BLOOD TRANSFUSION INITIATED. BP, RESP, HR WNL. PT NOTED WITH LOW GRADE FEVER OF 99.[address] VASQUES NOTIFIED, OKAY TO START TRANSFUSION. COOLING MEASURES PROVIDED, TYLENOL GIVEN. WILL CONTINUE TO MONITOR.
[2022-03-20 13:51] LABS: THYROID STIMULATING HORMONE 0.989 uIU/mL (0.358-3.74)
--- NOTE | 2022-03-20 15:55 | NUR ---
RN NOTE BLOOD TRANSFUSION COMPLETED. NO ADVERSE REACTIONS NOTED. PT RESTING IN BED COMFORTABLY. VITAL SIGNS WNL. TEMPERATURE NOW 99.4. WILL CONTINUE TO MONITOR. NOTIFIED DR. VASQUES THAT PLATELET CONCENTRATE IS NOT READY YET AND WILL REPEAT H/H AT 1700.
--- NOTE | 2022-03-20 17:58 | NUR ---
RN NOTE SPOKE WITH AICHA VASQUES REGARDING POST H/H RESULTS FOLLOWING BLOOD TRANSFUSION BEING 7.0/20. PER DR. VASQUES CBC IN AM. NO FURTHER ORDERS.
--- NOTE | 2022-03-20 18:51 | NUR ---
RN NOTE NO SIGNIFICANT CHANGES IN PT CONDITION DURING SHIFT. PT VITAL SIGNS WNL THROUGHOUT SHIFT. RUNNING MID 99'S HIGH 99'S TEMP. COOLING MEASURES WERE PROVIDED AND TYLENOL WAS GIVEN. AWARE. BLOOD TRANSFUSION WAS INITIATED WITH NO ADVERSE REACTIONS NOTED. PLATELET CONCENTRATE TO BE GIVEN DURING EVENING SHIFT WILL ENDORSE TO EVENING RN. IV ACCESS NOTED ON LEFT AC AND RIGHT WRIST INFUSING NS AT 75 CC/HR. ALL SAFETY MEASURES WERE IMPLEMENTED. WILL ENDORSE TO EVENING RN FOR JAKE.
--- NOTE | 2022-03-20 19:30 | NUR ---
HOME THEATER INSTALLER OPENING NOTE RECEIVED PT IN BED, A/O X 4. ABLE TO MAKE NEEDS KNOWN. IV ACCESS NOTED ON RIGHT AC INFUSING NS AT 75 CC/HR AND LEFT WRIST, SL. PT IS S/P BT. KEPT HOB ELEVATED. ALL SAFETY MEASURES IN PLACE: BED LOCKED IN LOW POSITION. CALL LIGHT WITHIN REACH. WILL CONTINUE TO MONITOR PT..
--- NOTE | 2022-03-20 20:56 | NUR ---
RN NOTE PLATELET TRANSFUSION INITIATED. INITIAL VS WNL. TEMP: 99.6 RR: 20 BP: 107/62 02 SAT: 97% WILL CONTINUE TO MONITOR PT CLOSELY.
--- NOTE | 2022-03-20 21:11 | NUR ---
RN NOTE VS AFTER 15 MINUTES: TEMP: 98.9 HR: 63 RR: 18 BP: 109/81 PT IS ALERT AND AWAKE. NO SIGNS OF ADVERSE REACTION NOTED AT THIS TIME. WILL CONTINUE TO MONITOR.
--- NOTE | 2022-03-20 21:56 | NUR ---
RN NOTE ONE HOUR INTO PLATELET TRANSFUSION, PT IS CALM AND AWAKE. NO SIGNS OF DISTRESS. VSS.
[2022-03-20] MEDS ORDERED: TBO-FILGRASTIM 300 MCG/0.5 ML SYRINGE SQ SCH (22:00)
--- NOTE | 2022-03-20 23:23 | NUR ---
RN NOTE UNABLE TO GIVE MEDICATION TBO-FILGRASTIM (GRANIX). NURSING SLATE SPLITTER JESSICA UNABLE TO PULL UP DRUG DUE TO ITS UNAVAILABILITY.
--- NOTE | 2022-03-20 23:45 | NUR ---
RN NOTE PLATELET TRANSFUSION ENDED. PT IN BED, SLEEPING. NO SIGNS OF ACUTE DISTRESS NOTED. ALL VS ARE WNL. WILL CONTINUE TO MONITOR.
[2022-03-21] VITALS: BP 127/70
[2022-03-21] MEDS: IV NS 0.9% 1,000 ML IV PRN ×2 (02:21→16:05)
[2022-03-21 04:00] VITALS: BP 110/82
--- NOTE | 2022-03-21 06:29 | NUR ---
SOLAR SYSTEMS DESIGNER CLOSING NOTE PT REMAINED STABLE THROUGHOUT THE NIGHT. PT IS NPO SINCE MIDNIGHT, EXCEPT FOR MEDS. SCHEDULED FOR US ABDOMEN TODAY. ALL SAFETY MEASURES IMPLEMENTED. WILL ENDORSE TO AM NURSE FOR JAKE.
[2022-03-21 06:35] LABS: LYMPHOCYTES # (AUTO) 0.8 K/uL (0.8-4.8); MEAN CORPUSCULAR HGB CONC 36 g/dl (31.0-36.0); MONOCYTES # (AUTO) 0.1 K/uL (0.1-1.30); NEUTROPHILS # (AUTO) 0.3 K/uL (1.8-8.9)
--- NOTE | 2022-03-21 07:30 | NUR ---
ASSISTANT OPERATIONS MANAGER OPENING NOTE RECEIVED PT IN BED, A/O X 4. ABLE TO MAKE NEEDS KNOWN. IV ACCESS NOTED ON RIGHT AC INFUSING NS AT 75 CC/HR. KEPT HOB ELEVATED. ALL SAFETY MEASURES IN PLACE: BED LOCKED IN LOW POSITION. CALL LIGHT WITHIN REACH. WILL CONTINUE TO MONITOR.
[2022-03-21 08:00] VITALS: BP 112/62
[2022-03-21 08:24] LABS: CALCIUM, SERUM 7.9 mg/dL (8.5-10.1); CREATININE 0.6 mg/dL (0.6-1.3); POTASSIUM 3.7 mmol/L (3.5-5.1)
[2022-03-21] MEDS: CEFEPIME 2 GM in IV D5W 100 ML IV SCH ×2 (08:37→20:16)
[2022-03-21] MEDS: THIAMINE HCL 100 MG TABLET PO SCH (08:37)
[2022-03-21] MEDS: PANTOPRAZOLE 40 MG VIAL IV SCH (08:37)
[2022-03-21] MEDS: TBO-FILGRASTIM 300 MCG/0.5 ML SYRINGE SQ SCH (08:38)
[2022-03-21 10:21] LABS: MEAN CORPUSCULAR VOLUME 90 fL (80-96)
[2022-03-21 10:26] LABS: HEMOGLOBIN 6.2 g/dL (13.5-17.5); RED BLOOD CELL COUNT(AUTO) 1.91 MIL/uL (4.5-6.0); WHITE BLOOD COUNT (AUTO) 1.2 K/uL (4.3-11.0)
[2022-03-21 10:29] LABS: HEMATOCRIT 17 % (39-51); LYMPHOCYTES % (AUTO) 67.3 % (20.0-44.0); MONOCYTES % (AUTO) 6.7 % (2.0-12.0); NEUTROPHILS % (AUTO) 25.1 % (43.0-81.0); PLATELET COUNT (AUTO) 25 K/uL (150-450)
[2022-03-21 10:30] LABS: BASOPHILS % (AUTO) 0.2 % (0.0-2.0); EOSINOPHILS % (AUTO) 0.7 % (0.0-6.0)
[2022-03-21 10:47] LABS: BAND % (MANUAL) 4 % (0.0-5.0); LYMPHOCYTES % (MANUAL) 68 % (16-48); MONOCYTES % (MANUAL) 5 % (0-11.0); NEUTROPHILS % (MANUAL) 23 (42-76)
[2022-03-21 12:00] VITALS: BP 120/64
[2022-03-21 16:00] VITALS: BP 116/76
[2022-03-21] MEDS: PANTOPRAZOLE 40 MG TABLET.DR PO SCH (16:26)
--- NOTE | 2022-03-21 19:00 | NUR ---
ABD FIDENCIO DONE. DIET CHANGED TO PREVIOUS DIET/SOFT DIET ORDERED.
--- NOTE | 2022-03-21 19:02 | NUR ---
AERONAUTICAL PRODUCTS SALES ENGINEER CLOSING NOTE PT IN BED, A/O X 4. ABLE TO MAKE NEEDS KNOWN. IV ACCESS ON RIGHT AC INFUSING NS AT 75 CC/HR. KEPT HOB ELEVATED. ALL SAFETY MEASURES IN PLACE: BED LOCKED IN LOW POSITION. CALL LIGHT WITHIN REACH. WILL ENDORSE TO NEXT NURSE ON DUTY FOR CONTINUITY OF CARE.
--- NOTE | 2022-03-21 19:30 | NUR ---
RN NOTES RECEIVED CARE OF PATIENT FROM AM NURSE. PATIENT A/O X4, ABLE TO MAKE NEEDS KNOWN. PATIENT ON ROOM AIR, O2 SAT 98%, NO RESPIRATORY DISTRESS NOTED. ON TELE MONITOR READING NSR WITH HR OF 73. NO SIGNIFICANT FINDINGS UPON INITIAL NURSING ASSESSMENTS. PENDING BLOOD TRANFUSION FOR HGB OF 6.2, BLOOD IS NOT READING AT THIS TIME PER BLOOD BLANK. SAFETY MEASURES IN PLACE. WILL CONTINUE TO MONITOR PATIENT.
[2022-03-21 20:00] VITALS: BP 122/75
[2022-03-22] VITALS (12 sets, daily range): BP systolic 114–130; BP diastolic 67–81
[2022-03-22 06:35] LABS: BASOPHILS % (AUTO) 0.1 % (0.0-2.0); EOSINOPHILS % (AUTO) 0.5 % (0.0-6.0); LYMPHOCYTES # (AUTO) 1.1 K/uL (0.8-4.8); LYMPHOCYTES % (AUTO) 57.2 % (20.0-44.0); MEAN CORPUSCULAR HGB CONC 36 g/dl (31.0-36.0); MEAN CORPUSCULAR VOLUME 89 fL (80-96); MONOCYTES # (AUTO) 0.2 K/uL (0.1-1.30); MONOCYTES % (AUTO) 8.9 % (2.0-12.0); NEUTROPHILS # (AUTO) 0.6 K/uL (1.8-8.9); NEUTROPHILS % (AUTO) 33.3 % (43.0-81.0)
[2022-03-22 06:38] LABS: CALCIUM, SERUM 8.5 mg/dL (8.5-10.1); CREATININE 0.5 mg/dL (0.6-1.3); POTASSIUM 3.6 mmol/L (3.5-5.1)
[2022-03-22 07:27] LABS: RED BLOOD CELL COUNT(AUTO) 1.96 MIL/uL (4.5-6.0)
[2022-03-22 07:32] LABS: HEMATOCRIT 18 % (39-51); HEMOGLOBIN 6.2 g/dL (13.5-17.5); PLATELET COUNT (AUTO) 16 K/uL (150-450); WHITE BLOOD COUNT (AUTO) 1.9 K/uL (4.3-11.0)
--- NOTE | 2022-03-22 07:32 | NUR ---
RN NOTES PATIENT IN BED, ASLEEP, RSEPONDS TO NAME AND TOUCH. NOT IN ANY DISTRESS. PER PLATFORM MATERIAL HANDLING SUPERVISOR, PT'S HGB LEVEL IS 6.2 SINCE YESTERDAY, ORDER PLACED FOR TRANSFUSION 03/21/2022 1227. NO AVAILABLE BLOOD FOR THE WHOLE DAY AND WHOLE PLATFORM MATERIAL HANDLING SUPERVISOR. BLOOD BECAME AVAILABLE ONLY AT 0600 THIS MORNIGN. WILL PROCEED WITH BLOOD TRANSFUSION ORDERED.
[2022-03-22] MEDS: PANTOPRAZOLE 40 MG TABLET.DR PO SCH ×2 (07:45→17:55)
[2022-03-22] MEDS: CEFEPIME 2 GM in IV D5W 100 ML IV SCH (09:26)
[2022-03-22] MEDS: THIAMINE HCL 100 MG TABLET PO SCH (09:26)
--- NOTE | 2022-03-22 09:30 | NUR ---
RN NOTES DUE MEDS GIVEN
[2022-03-22] MEDS: IV NS 0.9% 1,000 ML IV PRN (09:33)
[2022-03-22] MEDS: TBO-FILGRASTIM 300 MCG/0.5 ML SYRINGE SQ SCH (09:42)
--- NOTE | 2022-03-22 10:30 | NUR ---
RN NOTES 1 UNIT PRBC COMPLETED TRANSFUSION. NO ADVERSE REACTION NOTED
[2022-03-22 10:59] LABS: BAND % (MANUAL) 6 % (0.0-5.0); EOSINOPHILS % (MANUAL) 1 % (0-4); LYMPHOCYTES % (MANUAL) 58 % (16-48); MONOCYTES % (MANUAL) 6 % (0-11.0); NEUTROPHILS % (MANUAL) 29 (42-76)
[2022-03-22] MEDS ORDERED: diphenhydrAMINE HCL 50 MG/ML VIAL IV ONE ×2 (18:30→23:00)
[2022-03-22] MEDS ORDERED: ACETAMINOPHEN 325 MG TABLET PO ONE (18:30)
--- NOTE | 2022-03-22 19:20 | NUR ---
HOSE STRIPPER OPENING NOTES: RECEIVED PATIENT IN BED, AWAKE, A/O X4. NO S/S OF DISTRESS NOTED. NO COMPLAIN OF PAIN. CALL LIGHT WITHIN REACH. BED IN LOWEST AND LOCKED POSITION. URINAL AT THE BEDSIDE. ON REVERSED ISOLATION, MAINTAINED AT ALL TIMES. DR LUO CAME AND SEEN THE PATIENT AT 1950. ON TELE MONITOR WITH SINUS JETHRO 59.
--- NOTE | 2022-03-22 19:26 | NUR ---
BARREL RIFLER OPERATOR CLOSING NOTES PATIENT IN BED, RESTING, AOX 3, ON ROOM AIR, NOT IN ANY DISTRESS, RESPIRATION UNLABORED, SB TO SR HR 58, DENIES CHEST PAIN/DISCOMFORT, IV ACCESS RAC WITH NS AT 75 ML/HR, RT WRIST FLUSHES WELL, BOTH SITES CLEAR, SOFT DIET, AMBULATORY, SKIN INTACT, SAFETY MEASURES IN PLACE, REVERSE ISOLATION, CALL LIGHT WITHIN REACH, WILL ENDORSE TO NEXT SHIFT FOR JAKE.
[2022-03-22] MEDS: ACETAMINOPHEN 325 MG TABLET PO PRN (22:50)
[2022-03-23] VITALS (8 sets, daily range): BP systolic 117–141; BP diastolic 64–82
[2022-03-23] MEDS: IV NS 0.9% 1,000 ML IV PRN (04:18)
[2022-03-23 06:48] LABS: CALCIUM, SERUM 8.3 mg/dL (8.5-10.1); CREATININE 0.5 mg/dL (0.6-1.3); POTASSIUM 3.6 mmol/L (3.5-5.1)
--- NOTE | 2022-03-23 07:30 | NUR ---
SIDEROGRAPHER AM NOTES PATIENT IN BED, AOX 3, ON ROOM AIR, NOT IN ANY DISTRESS, RESPIRATION UNLABORED, SB HR 54, DENIES CHEST PAIN/DISCOMFORT, IV ACCESS RAC WITH NS AT 75 ML/HR, INFILTRATED, RT WRIST FLUSHES WELL, REQUESTED FOR A MIDLINE INSERTION, PER MD GALLARDO. SOFT DIET, AMBULATORY, SKIN INTACT, SAFETY MEASURES IN PLACE, REVERSE ISOLATION, CALL LIGHT WITHIN REACH, POC DISCUSSED, VERBALIZED UNDERSTANDING. WILL CONT TO MONITOR.
[2022-03-23 07:44] LABS: BASOPHILS % (AUTO) 0.1 % (0.0-2.0); EOSINOPHILS % (AUTO) 0.4 % (0.0-6.0); HEMATOCRIT 23 % (39-51); LYMPHOCYTES # (AUTO) 1.3 K/uL (0.8-4.8); LYMPHOCYTES % (AUTO) 54.7 % (20.0-44.0); MEAN CORPUSCULAR HGB CONC 35 g/dl (31.0-36.0); MEAN CORPUSCULAR VOLUME 91 fL (80-96); MONOCYTES # (AUTO) 0.2 K/uL (0.1-1.30); MONOCYTES % (AUTO) 8.6 % (2.0-12.0); NEUTROPHILS # (AUTO) 0.8 K/uL (1.8-8.9); NEUTROPHILS % (AUTO) 36.2 % (43.0-81.0); RED BLOOD CELL COUNT(AUTO) 2.49 MIL/uL (4.5-6.0); WHITE BLOOD COUNT (AUTO) 2.3 K/uL (4.3-11.0)
[2022-03-23 08:13] LABS: PLATELET COUNT (AUTO) 11 K/uL (150-450)
[2022-03-23] MEDS: PANTOPRAZOLE 40 MG TABLET.DR PO SCH ×2 (08:13→17:31)
[2022-03-23] MEDS: THIAMINE HCL 100 MG TABLET PO SCH (08:13)
--- NOTE | 2022-03-23 08:16 | NUR ---
telemarketer supervisor note aleida dnp notified that platelets 11 no new order given at this time , no active bleeding noted
--- NOTE | 2022-03-23 09:30 | NUR ---
RN NOTES DUE MEDS GIVEN
[2022-03-23] MEDS: TBO-FILGRASTIM 300 MCG/0.5 ML SYRINGE SQ SCH (09:36)
--- NOTE | 2022-03-23 11:13 | NUR ---
"SS Note: SS received consult for homelessness. Pt. Is a 41-year-old male who demonstrates adequate insight to the reason for hospitalization. Per EMR, pt. presents to the hospital for GI bleed. Pt. was oriented x4, alert, and cooperative. During interview, pt. was capable of following directions and appeared groomed. Pt.s speech was at a normal rate and pt.s mood was elevated. Pt. reported no hx of mental health, denies suicidal ideation, or homicidal ideation. Pt. denies auditory hallucinations, visual hallucinations, paranoia, or delusions. Pt. stated that he has been drinking alcohol for 20 years. Pt. has never bene to rehab and refuses rehab facility when offered. Per pt., he does not want to stop because he will eventually fall back into it. SW explored pt.s living situation. Per pt., he is currently staying at a hotel on [address]. Pt. stated that his stay will end on the 15 of April. Once it ends, his plan is to stay with a friend or chcf. JACI provided pt. with a list of shelters and explained to pt. that every chcf requires an intake [usually from 8am-1pm], and there is a waitlist. SW explained to pt. that [facility] helps individuals with housing [Section 8]. Pt. expressed understanding. Pt. also requested information for SSI. SW provided pt. with information and number for SSI. Plan: SW provided available resources and pt. accepted. Upon discharge, per pt., he will return to the hotel on [facility], since his belongings are there. Pt. signed homeless waiver and its placed in chart. Resources Provided: SSI Information Year-round shelters: [facility] [address] [place] [address] ; [facility] [facility] [address] [place] [address]; [facility] [id number] [facility] [address] Winter Shelters: Cullen [place] Provider: [facility] [place] Address: [address] [place], [address] # of Beds: 47 Population Served: [facility] 6 | [facility] Zahida Adamehuliban T[place] Provider: [facility] Address: [address] [place] [address], [address] # of Beds: 66 Population Served: Reneedavid Debbie [place] Provider: [facility] Address: [address], [address] # of Beds: 56 Population Served: [facility] [place] Provider: [facility] Address: [address] [facility], [address] # of Beds: 49 Population Served: [facility]PA 8 | [place] Provider: [facility] Address: [address] [facility]. [place], [address] # of Beds: 37 Population Served: [facility] Hygiene: [facility]: [address] ; [facility] [address] [facility] ; [facility] [address] [facility] . Food Resources: [place] [facility] at [facility]- [address] [facility]; Meet Each Need with Dignity ([facility]) [address] [facility]; [facility] [address] [facility]; [facility] [address] [facility]. Mental Health resources provided: [facility] [address] [place] [address] ; [facility] [address], [place] [address] ; Deirdre Marion [facility] [address] [place] [address] ; [facility] [address] [place], [place] [phone] Healthcare Clinics: [facility] [address] [facility], [address] [place]. [place] ; [facility] [address] [facility] [address] [place] [address]; [facility] [address] [facility] [place] [phone]) [phone] Counseling--Outpatient [facility] [address] [facility], [address] [place], [place] [address] (Specializes in in-depth psychotherapy for emotional distress: anxiety, depression, interpersonal conflicts, life transitions, childhood abuse) [facility] [address] [place] [address] (Assist with solving problem marital difficulties, separation & divorce, aging parents, & grief, chronic & terminal illness) [facility] [address] [place] [address] (Deal with loss & grief, anxiety, marital difficulties) Homebound/Mental Health Services [address] [facility] [address] [place] [address] (Provide in-home mental services to people who are incapable of leaving their homes) [facility] for Needs of the Elderly Senior Service/Resource Center [address] [place] [address] [facility] [address] [facility] [place] [address] [address] SERVICES [facility] Partial Hospitalization and Intensive Outpatient Program (Managed Care and [place] Only)[address] [facility] [phone] [facility] Partial Hospitalization and Outpatient [id number] Shantanu [facility]. [address] [place], [place] [phone] [facility] Center [id number] [facility]. [address] [place], [place] [phone] [facility] Partial Hospitalization and Outpatient [id number] [place], [phone] Substance Abuse resources provided included: [facility] Substance Abuse Self-Helpline (SAS) ; [facility] [address] [facility]. [place]. [place] [address] ; [facility] [address] [facility] [address] ; [facility] [address] [place] [address] ; [facility] [address] [facility] [phone] ; [facility] Treatment [facility] [address] [place] [facility] [address] ; SoftoCoupon 9[address] [facility] [phone] ; [facility] Substance Abuse Helpline([facility] ; [facility] ; [facility]; [facility] [place]; [facility] [place]; [facility] [address]; [facility] [place]; [facility] [place]; [facility]; [facility] [place]; Alcoholics Anonymous -SFV; Zj-Ptvr-Cjekffa ; Marijuana Anonymous -SFV; Narcotics Anonymous www.na.org;"
--- NOTE | 2022-03-23 18:38 | NUR ---
pediatrics hospitalist CLOSING NOTES PATIENT AAO X 3 AND RESTING COMFORTABLY IN BED. PATIENT ON RA AND WITH NO RESPIRATORY DISTRESS NOTED THE ENTIRE SHIFT. NO C/O PAIN OR DISCOMFORT AND DENIES ANY S/S OF CHEST PAIN. PATIENT HAS MIDLINE IV ACCESS ON LEFT UPPER ARM INFUSING WITH NS AT 75 ML/HR. SB WITH HR OF 55. SKIN INTACT AND IS AMBULATORY. PER GUIDANCE ADVISER JACQUI AT EXT [phone], POSSIBLE DISCHARGE TOMORROW AND TO ENSURE PATIENT HAS PACKET FOR [facility] RESOURCES. HAS SAFETY MEASURES IN PLACE, REVERSE ISOLATION, CALL LIGHT WITHIN REACH, WILL ENDORSE TO NEXT SHIFT FOR JAKE.
--- NOTE | 2022-03-23 19:30 | NUR ---
RN NOTE RECEIVED PT IN BED, AWAKE WATCHING TV, ALERT AND ORIENTED. DENIES ANY PAIN OR SOB. SINUS JETHRO ON TELE MONITOR. NOT IN ANY DISTRESS. ON IVFLUIDS OF NS AT 75ML/HR. WILL CONTINUE TO MONITOR.
[2022-03-24] VITALS (8 sets, daily range): BP systolic 119–136; BP diastolic 68–88
[2022-03-24] MEDS: IV NS 0.9% 1,000 ML IV PRN ×2 (00:08→13:36)
--- NOTE | 2022-03-24 07:00 | NUR ---
RN NOTE RECEIVED PT ON BED, A/Ox4, NO DISTRESS NOTED, SINUS JETHRO ON TELE MONITOR SB, HR IN 50'S , NOT IN ANY DISTRESS. ON IV FLUIDS OF NS AT 75ML/HR. WILL CONTINUE TO MONITOR.
--- NOTE | 2022-03-24 07:03 | NUR ---
RN NOTE PT SLEEPING, AROUSES EASILY. TOLERATES ROOM AIR. NOT IN ANY DISTRESS. TMAX 99.4, DENIES SOB OR PAIN. CONTINUE ON IV FLUIDS OF NS AT 75ML/HR. MIDLINE PATENT AND INTACT. ENDORSED TO [facility] FOR JAKE.
[2022-03-24 07:28] LABS: BASOPHILS % (AUTO) 0.1 % (0.0-2.0); EOSINOPHILS % (AUTO) 0.3 % (0.0-6.0); HEMATOCRIT 27 % (39-51); HEMOGLOBIN 9.2 g/dL (13.5-17.5); LYMPHOCYTES # (AUTO) 1.2 K/uL (0.8-4.8); LYMPHOCYTES % (AUTO) 45.9 % (20.0-44.0); MEAN CORPUSCULAR HGB CONC 35 g/dl (31.0-36.0); MEAN CORPUSCULAR VOLUME 92 fL (80-96); MONOCYTES # (AUTO) 0.3 K/uL (0.1-1.30); MONOCYTES % (AUTO) 11.7 % (2.0-12.0); NEUTROPHILS # (AUTO) 1.1 K/uL (1.8-8.9); RED BLOOD CELL COUNT(AUTO) 2.91 MIL/uL (4.5-6.0); WHITE BLOOD COUNT (AUTO) 2.5 K/uL (4.3-11.0)
[2022-03-24 07:36] LABS: PLATELET COUNT (AUTO) 9 K/uL (150-450)
[2022-03-24] MEDS: PANTOPRAZOLE 40 MG TABLET.DR PO SCH ×2 (08:37→17:04)
[2022-03-24] MEDS: THIAMINE HCL 100 MG TABLET PO SCH (08:38)
[2022-03-24] MEDS: TBO-FILGRASTIM 300 MCG/0.5 ML SYRINGE SQ SCH (10:32)
--- NOTE | 2022-03-24 12:00 | NUR ---
RN NOTES NO PLATELETS AVAILABLE PER BLOOD BANK , HAS TO BE ORDER FROM [facility].
--- NOTE | 2022-03-24 18:11 | NUR ---
RN NOTES PLATELETS NOT AVAILABLE FROM BLOOD BAND YET , PT STABLE , NO SIGNFICANT CHANGES NOTED ON THIS SHIFT , WILL ENDORSE TO [facility] SHIFT NURSE FOR CONTINUITY OF CARE .
--- NOTE | 2022-03-24 19:10 | NUR ---
RN NOTES RECEIVED PT FOR CONTINUITY OF CARE. PATIENT A/OX4 IN NO S/SX OF ACUTE DISTRESS AT THIS TIME; CURRENTLY ON ROOM AIR; WITH 02 SAT >95% AT THIS TIME. WITH IV ACCESS PATENT, INTACT AND FLUSHING WELL. WITH RUNNING NS@75MLS/HR. WILL ENSURE SAFETY MEASURES WITHIN THE SHIFT. PATIENT BED ALARM IS ON. HEAD OF BED ELEVATED. BED IS LOCKED, IN LOWEST POSITION AND SIDE RAILS UP. CALL LIGHT WITHIN REACH OF THE PATIENT. WILL CONTINUE TO MONITOR AND REASSESS FOR ANY CHANGES AND WILL CARRY OUT ANY ONGOING AND ACTIVE MD ORDER.
--- NOTE | 2022-03-24 20:25 | NUR ---
RN NOTES @2004 STARTED 1 UNIT OF PLATELET ORDERED. INITIAL VITAL SIGNS TAKEN AND NOTED TO BE WNL. INFUSED PER PROTOCOL. ENDED BLOOD TRANSFUSION @2024, VITAL SIGNS REMAINED WNL, NO BLOOD TRANSFUSION REACTION NOTED. WILL CONTINUE TO MONITOR AND ASSESS FOR ANY BLOOD TRANSFUSION REACTION POST PROCEDURE. EXPLOSIVE OPERATOR FUSE MADE AWARE.
[2022-03-25] MEDS: IV NS 0.9% 1,000 ML IV PRN (03:31)
[2022-03-25 04:00] VITALS: BP 102/58
--- NOTE | 2022-03-25 04:00 | NUR ---
RN NOTES PATIENT REMAINED TO BE IN NO SIGNS OF ACUTE RESPIRATORY DISTRESS , SAFE ENVIRONMENT MAINTAINED FOR PT. AM PATIENT CARE ASSISTANCE RENDERED. WILL CONTINUE TO MONITOR AND REASSESS FOR ANY CHANGES THROUGHOUT THE SHIFT.
--- NOTE | 2022-03-25 06:31 | NUR ---
RN CLOSING NOTE: PATIENT REMAINS IN ROOM IN NO SIGNS OF RESPIRATORY DISTRESS, PATIENT STILL ON ROOM AIR ;TOLERATING WELL SATURATING @ >95% SP02. TRANSFUSED1 BAG PLATELET LAST NIGHT, NO TRANSFUSION REACTION NOTED. POSSIBLE DC TODAY SAFETY MEASURES IMPLEMENTED, BED IN LOWEST POSITION, LOCKED, SIDE RAILS UP, CALL LIGHT WITHIN REACH. ALL NEEDS AND ORDERS ADDRESSED DURING THE SHIFT. IV ACCESS MAINTAINED INTACT, SECURED AND FLUSHING WELL. ALL DUE MEDS GIVEN ORDERED & SCHEDULED ; PATIENT TOLERATED WELL. PATIENT KEPT CLEAN AND COMFORTABLE WITHIN THE SHIFT. PATIENT ENDORSED TO INCOMING SHIFT RN WITH STABLE VITAL SIGN AND FOR CONTINUITY OF CARE.
[2022-03-25 06:35] LABS: EOSINOPHILS % (AUTO) 0.3 % (0.0-6.0); HEMATOCRIT 26 % (39-51); LYMPHOCYTES # (AUTO) 1.3 K/uL (0.8-4.8); MEAN CORPUSCULAR HGB CONC 35 g/dl (31.0-36.0); MEAN CORPUSCULAR VOLUME 92 fL (80-96); MONOCYTES # (AUTO) 0.4 K/uL (0.1-1.30); MONOCYTES % (AUTO) 13.9 % (2.0-12.0); NEUTROPHILS # (AUTO) 1.2 K/uL (1.8-8.9); NEUTROPHILS % (AUTO) 39.8 % (43.0-81.0); RED BLOOD CELL COUNT(AUTO) 2.79 MIL/uL (4.5-6.0); WHITE BLOOD COUNT (AUTO) 2.9 K/uL (4.3-11.0)
[2022-03-25 06:38] LABS: PLATELET COUNT (AUTO) 24 K/uL (150-450)
[2022-03-25 06:52] LABS: ALBUMIN 3.3 g/dL (3.4-5.0); BILIRUBIN,TOTAL 0.8 mg/dL (0.2-1.0); CALCIUM, SERUM 8.8 mg/dL (8.5-10.1); CREATININE 0.5 mg/dL (0.6-1.3); POTASSIUM 3.9 mmol/L (3.5-5.1); TOTAL PROTEIN, SERUM 6.6 g/dL (6.4-8.2)
--- NOTE | 2022-03-25 07:00 | NUR ---
MS RN OPENING NOTE PATIENT LAYING IN BED, A/O X 4, ABLE TO MAKE NEEDS KNOWN. TOLERATING WELL ON ROOM AIR WITH NO S/S RESPIRATORY DISTRESS. MARISOL MIDLINE IN PLACE, CLEAN AND INTACT, WITH NS INFUSING @ 75 ML/HR. NO COMPLAINTS OF PAIN OR DISCOMFORT AT THIS TIME. SAFETY MEASURES IN PLACE: BED IN LOWEST LOCKED POSITION, SIDE RAILS UP X 2, CALL LIGHT WITHIN REACH. WILL CONTINUE TO MONITOR.
[2022-03-25] MEDS: PANTOPRAZOLE 40 MG TABLET.DR PO SCH (07:41)
[2022-03-25 08:00] VITALS: BP 110/60
[2022-03-25] MEDS: THIAMINE HCL 100 MG TABLET PO SCH (09:02)
[2022-03-25] MEDS: TBO-FILGRASTIM 300 MCG/0.5 ML SYRINGE SQ SCH (11:01)
--- NOTE | 2022-03-25 12:00 | NUR ---
MS IRON GUARDRAIL INSTALLER NOTE PATIENT MADE AWARE OF MD DISCHARGE ORDER. PATIENT VERBALIZED UNDERSTANDING OF MD DISCHARGE INSTRUCTIONS AND SIGNED MD DISCHARGE INSTRUCTIONS SHEET. PATIENT VERBALIZED POSSESSION OF ALL BELONGINGS AND SIGNED BELONGINGS SHEET. IV LINE AND ID BAND REMOVED. ALL DISCHARGE PAPERWORK PROVIDED TO PATIENT INCLUDING A LIST OF HOMELESS SHELTERS PER ADMINISTRATIVE SUPERVISOR. PATIENT TRANSFERRED OFF OF UNIT VIA AMBULATION WITHOUT INCIDENT. PATIENT STABLE AT TIME OF DISCHARGE.
== END 2022-03-25 11:30 | disposition home or self-care (01) | DRG 660 ==
LOC: ER 15:15 → TRANSITION 22:41 → TELE1 03-20 02:19 → MEDSG1 03-24 08:36
PROVIDERS: ADMIT Nurse Practitioner Acute Care; ATTEND Nurse Practitioner Acute Care
PROC: 30233N1 Transfusion of Nonautologous Red Blood Cells into Peripheral Vein, Percutaneous Approach (ICD-10-PCS; principal; 2022-03-20)
PROC: 30233R1 Transfusion of Nonautologous Platelets into Peripheral Vein, Percutaneous Approach (ICD-10-PCS; 2022-03-20)
PROC: 05HA33Z Insertion of Infusion Device into Left Brachial Vein, Percutaneous Approach (ICD-10-PCS; 2022-03-23)
DX: D61.89 Other specified aplastic anemias and other bone marrow failure syndromes (principal); I21.4 Non-ST elevation (NSTEMI) myocardial infarction; D69.6 Thrombocytopenia, unspecified; I42.9 Cardiomyopathy, unspecified; J18.9 Pneumonia, unspecified organism; D70.9 Neutropenia, unspecified; F10.20 Alcohol dependence, uncomplicated; Z20.822 Contact with and (suspected) exposure to COVID-19; Z79.899 Other long term (current) drug therapy; F15.90 Other stimulant use, unspecified, uncomplicated; Y90.4 Blood alcohol level of 80-99 mg/100 ml; D61.818 Other pancytopenia; R79.89 Other specified abnormal findings of blood chemistry; Z59.00 Homelessness unspecified; Z87.891 Personal history of nicotine dependence; R74.01 Elevation of levels of liver transaminase levels; J40 Bronchitis, not specified as acute or chronic
CPT/HCPCS: 36410; 36415; 71045-TC; 76700-TC; 80048-TC; 80053-TC; 80076-TC; 81001; 82607-TC; 82728-TC; 82962-TC; 83540-TC; 83605-TC; 83735-TC; 84100-TC; 84443-TC; 84484-TC; 85025-TC; 85027-TC; 85385-TC; 85610-TC; 85730-TC; 86706; 86803; 86850-TC; 87040-TC; 87081-TC; 87340; 93307-TC; C9113; C9803; G0378; G0480; J0692; J1200; J1442; J2060; J2270; J2354; J2405; J3370; J7030; J7040; J7050; J7060; P9016; P9034